=== PATIENT | female | born 1995 | race Hispanic/Latino ===

== ENCOUNTER 2016-05-08 12:08 | Emergency (ER) | payer OTHER ==
[~2016-05-08] VITALS: Ht 149.9 cm; Wt 65.8 kg
--- NOTE | 2016-05-08 15:22 | ED GENERAL ADULT ---
See Addendum History of Present Illness General Chief Complaint: General Adult Stated Complaint: ABD PAIN/LEG PAIN Source: patient Exam Limitations: no limitations Vital Signs & Intake/Output Vital Signs & Intake/Output Vital Signs Date Time Temp Pulse Resp B/P Pulse O2 O2 Flow FiO2 Ox Delivery Rate 05/08 1746 88 18 112/60 98 Room Air 05/08 1537 97.2 58 13 126/71 100 Room Air 05/08 1219 97.6 73 18 112/75 99 Room Air Allergies Coded Allergies: No Known Drug Allergies (05/08/16) Reconcile Medications Montelukast Sodium 10 MG TABLET 1 TAB PO DAILY WHEEZING (Reported) Sulfamethoxazole/Trimethoprim (Bactrim Ds Tablet) 800 MG-160 MG TABLET 1 TAB PO BID IFN Triage Note: C/O R SIDED ABDOMINAL PAIN RADIATING TO RIGHT LEG X 2-3 DAYS. DENIES URINARY SXS. LMP: 4 WEEKS AGO. STATES PAIN IS STEADY, DENIES NAUSEA, VOMITING OR DIARRHEA. Triage Nurses Notes Reviewed? yes Onset: Abrupt Duration: day(s): Timing: recent history : No Patient currently breastfeeds: No HPI: 05/08/16 This is a 20-year-old female presents to the emergency department complaining of right lower quadrant pain. The patient states she was in her usual state of health until approximately 48 hours ago when she developed an abrupt onset of right lower quadrant abdominal pain. The onset of the symptoms were abrupt, the duration has been 48 hours, the severity is significant; as her symptoms required her to come to the emergency department for care. She has a past medical history that is unremarkable. No past surgical history other than nasal surgery. She does not drink alcohol but she does occasionally smoke. Her last menstrual period was approximately one month ago. She is on oral contraceptives. She grades the pain as 6 out of 10. She denies any vaginal discharge or dysuria. Past History Travel History Traveled to [place] past 21 day No Medical History Any Pertinent Medical History? see below for history Neurological: NONE EENT: NONE Cardiovascular: NONE Respiratory: NONE Gastrointestinal: NONE Hepatic: NONE Renal: NONE Musculoskeletal: NONE Psychiatric: NONE Endocrine: NONE Surgical History Surgical History: non-contributory Psychosocial History What is your primary language Bengali Tobacco Use: Current Daily Use Daily Tobacco Use Amount/Type: => 5 Cigarettes daily ETOH Use: denies use Family History Hx Contributory? No Review of Systems Review of Systems Constitutional: Denies: fever. EENTM: Reports: no symptoms. Respiratory: Denies: short of breath. Cardiovascular: Denies: chest pain. GI: Reports: abdominal pain. Denies: diarrhea, nausea, vomiting. Genitourinary: Denies: dysuria, urgency. Musculoskeletal: Reports: no symptoms. Skin: Denies: rash. Neurological/Psychological: Reports: no symptoms. Hematologic/Endocrine: Reports: no symptoms. Immunologic/Allergic: Reports: no symptoms. Physical Exam Physical Exam General Appearance: well developed/nourished, alert, awake, anxious, mild distress Head: atraumatic, normal appearance Eyes: Bilateral: normal appearance, PERRL, EOMI. Ears, Nose, Throat: normal pharynx, normal ENT inspection, hearing grossly normal Neck: normal inspection, supple, full range of motion Respiratory: normal breath sounds, chest non-tender, no respiratory distress Cardiovascular: regular rate/rhythm Peripheral Pulses: 4+ radial (R), 4+ radial (L) Gastrointestinal: soft, tenderness Back: normal range of motion Extremities: normal inspection, normal range of motion, no edema Neurologic/Psych: no motor/sensory deficits, awake, alert, oriented x 3 Skin: intact, normal color, warm/dry Core Measures ACS in differential dx? No CVA/TIA Diagnosis: No Severe Sepsis Present: No Septic Shock Present: No Progress Differential Diagnoses I considered the following diagnoses in my evaluation of the patient: [Ectopic , ruptured ovarian cyst, ruptured hemorrhagic ovarian cyst, pyelonephritis, UTI, ovarian torsion, PID, cervicitis, appendicitis] Plan of Care: Orders Procedure Date/time Status Add-on Test (ER Only) 05/08 1707 Active CHLAMYDIA-GC DNA PROBE 05/08 1525 Active COMPREHENSIVE METABOLIC PANEL 05/08 1525 Complete CBC WITHOUT DIFFERENTIAL 05/08 1525 Complete Add-on Test (ER Only) 05/08 1452 Active CULTURE,URINE 05/08 1241 Active URINE 05/08 1241 Complete URINALYSIS 05/08 1224 Complete Laboratory Tests 05/08/16 1533: Anion Gap 12, Estimated GFR > 60, BUN/Creatinine Ratio 12.9, Glucose 84, Calcium 9.8, Total Bilirubin 0.5, AST 16, ALT 29, Alkaline Phosphatase 51, Total Protein 7.5, Albumin 4.4, Globulin 3.1, Albumin/Globulin Ratio 1.4, CBC w Diff NO MAN DIFF REQ, RBC 5.26, MCV 81.2, MCH 26.9 L, RDW 16.2 H, MPV 8.5, Gran % 57.8, Lymphocytes % 32.5, Monocytes % 5.8, Eosinophils % 3.2, Basophils % 0.7, Absolute Granulocytes 6.9 H, Absolute Lymphocytes 3.9 H, Absolute Monocytes 0.7 H, Absolute Eosinophils 0.4, Absolute Basophils 0.1, PUBS MCHC 33.1 05/08/16 1241: Urine Color YEL, Urine Clarity HAZY H, Urine pH 6.0, Ur Specific [place] >= 1.030, Urine Protein 100 H, Urine Ketones NEG, Urine Nitrite NEG, Urine Bilirubin NEG, Urine Urobilinogen 0.2, Ur Leukocyte Esterase SMALL H, Ur Microscopic SEDIMENT EXAMINED, Urine RBC RARE, Urine WBC > 75 H, Ur Epithelial Cells MANY H, Urine Hemoglobin TRACE-INTACT, Urine Glucose NEG, Urine Test NEGATIVE Microbiology 05/08 1750 GENITAL: GC DNA Probe - RECD 05/08 1750 GENITAL: Chlamydia DNA Probe (AVRIL) - RECD 05/08 124 URINE ROUT: Urine Culture - RECD Initial ED EKG: none Departure Departure Disposition: HOME OR SELF CARE Condition: Stable Clinical Impression Primary Impression: Pelvic pain Referrals: UNKNOWN (PCP/Family) Departure Forms: Customer Survey General Discharge Information Prescriptions: Current Visit Scripts Sulfamethoxazole/Trimethoprim (Bactrim Ds Tablet) 1 TAB PO BID #20 TAB Comments 05/08/16 The patient's labs were unremarkable other than mild leukocytosis. Transvaginal Ultrasound was negative. Urinalysis revealed significant pyuria CT scan of the abdomen and pelvis was negative for evidence of appendicitis. The patient was given Rocephin in the emergency department and discharged on Bactrim. Critical Care Note Critical Care Note Critical Care Time: non-applicable
[2016-05-08] MEDS ORDERED: MONTELUKAST SOD10 M1 PO (15:39)
[2016-05-08 15:44] LABS: ABSOLUTE BASOPHIL COUNT 0.1 /CUMM (0.0-0.2); ABSOLUTE EOSINOPHIL COUNT 0.4 /CUMM (0.0-0.7); ABSOLUTE GRANULOCYTE CT 6.9 /CUMM (1.4-6.5); ABSOLUTE LYMPH COUNT 3.9 /CUMM (1.2-3.4); ABSOLUTE MONOCYTE COUNT 0.7 /CUMM (0.10-0.60); BASOPHIL % 0.7 % (0.0-2.0); EOSINOPHIL % 3.2 % (0-5); GRANULOCYTE % 57.8 % (42.2-75.2); HEMATOCRIT 42.8 % (37-47); MEAN CORPUSCULAR HGB 26.9 PG (27.0-31.0); MEAN CORPUSCULAR HGB CONC 33.1 G/DL (33.0-37.0); MEAN CORPUSCULAR VOLUME 81.2 FL (81.0-99.0); MEAN PLATELET VOLUME 8.5 FL (7.4-10.4); PLATELET COUNT 355 /CUMM (130-400); RBC DISTRIBUTION WIDTH 16.2 % (11.5-14.5); RED BLOOD CELL CT 5.26 /CUMM (4.20-5.40)
--- NOTE | 2016-05-08 17:01 | ULTRASOUND REPORT ---
EXAMINATION: US TRANSVAGINAL CLINICAL INFORMATION: Right lower quadrant pain. Evaluate for ovarian torsion versus a ruptured ovarian cyst. COMPARISON: None. TECHNIQUE: Real-time sonographic imaging of the uterus and bilateral adnexa via transvaginal approach. FINDINGS: The uterus is anteverted and measures 6.2 x 2.6 x 4.2 cm in sagittal, AP and transverse dimensions respectively, corresponding to a volume of 34.6 mL. The endometrial stripe measures 0.2 cm in thickness. The cervical length is 2.0 cm. No focal uterine masses are identified. The bilateral ovaries appear unremarkable. The right ovary measures 3.4 x 1.6 x 2.1 cm, corresponding to a volume of 5.9 mL. The left ovary measures 2.6 x 1.8 x 2.1 cm, corresponding to a volume of 5.2 mL. Arterial and venous flow are demonstrated within the bilateral ovaries. No significant free pelvic fluid. IMPRESSION: Unremarkable pelvic ultrasound. Arterial and venous flow are demonstrated within the bilateral ovaries.
[2016-05-08 17:46] VITALS: BP 112/60
--- NOTE | 2016-05-08 18:55 | CT SCAN REPORT ---
EXAMINATION: CT ABDOMEN AND PELVIS WITH CONTRAST CLINICAL INFORMATION: 20-year-old female with right lower quadrant pain. COMPARISON: Endovaginal ultrasound examination the pelvis today. (Normal). TECHNIQUE: Multidetector volumetric imaging was performed of the abdomen and pelvis before and after the IV administration of 95 mL of Optiray 320 intravenous contrast. Sagittal and coronal reformatted images were obtained on the technologist's workstation. DLP: 254 mGy-cm. FINDINGS: Senior Electrical Estimator view is unremarkable. LUNG BASES: The visualized lung bases are unremarkable. LIVER, GALLBLADDER, AND BILIARY TREE: Normal. PANCREAS: Unremarkable. SPLEEN: Unremarkable. ADRENAL GLANDS: Unremarkable. KIDNEYS AND URETERS: The kidneys are normal in size, shape, and attenuation. No hydronephrosis, hydroureter, or calculi seen. No perinephric stranding. BLADDER: Unremarkable. GASTROINTESTINAL TRACT: The small and large bowel are unremarkable. The appendix is unremarkable. ABDOMINAL WALL: No significant hernia is appreciated. LYMPH NODES: Normal. VASCULAR: Unremarkable. PELVIC VISCERA: The anteverted uterus and both ovaries are normal. There is no free fluid. OSSEOUS STRUCTURES: Unremarkable. IMPRESSION: No sign of appendicitis.
[2016-05-08] MEDS ORDERED: BACTRIM DS TAB1 EACH PO (19:09)
[2016-05-10] MEDS ORDERED: AZITHROMYCIN500 M3 PO (09:57)
== END 2016-05-08 19:16 ==
LOC: ERH 12:08
PROVIDERS: Emergency Medicine
DX: R10.2 Pelvic and perineal pain (principal); M79.606 Pain in leg, unspecified
CPT/HCPCS: 74177; 81001; 81025; 87086; 87491; 87591; 96360; 96372; J0696; J1885